=== PATIENT | female | born 1985 | race Hispanic/Latino ===

== ENCOUNTER → 2023-10-15 | Outpatient (CLI) | payer OTHER ==
[2023-10-15 11:19] LABS: BASOPHILS # (AUTO) 0.05 K/uL (0.00-0.20); BASOPHILS % (AUTO) 0.6 % (0.0-5.0); EOSINOPHILS # (AUTO) 0.19 K/uL (0.00-0.70); EOSINOPHILS % (AUTO) 2.4 % (0.0-8.0); HEMATOCRIT 36.4 % (36-48); IMMATURE GRANULOCYTE ABSOLUTE 0.01 K/uL (0-1); LYMPHOCYTES # (AUTO) 2.4 K/uL (1.0-4.8); LYMPHOCYTES % (AUTO) 30.4 % (21.0-51.0); MEAN CORPUSCULAR HEMOGLOBIN 28.5 pg (27.0-33.0); MEAN CORPUSCULAR HGB CONC 33.2 g/dL (32.0-36.0); MEAN CORPUSCULAR VOLUME 85.6 fL (79-99); MONOCYTES # (AUTO) 0.6 K/uL (0.1-1.0); MONOCYTES % (AUTO) 8.1 % (3.0-13.0); NEUTROPHILS # (AUTO) 4.6 K/uL (1.8-7.7); NEUTROPHILS % (AUTO) 58.4 % (40.0-77.0); PLATELET COUNT (AUTO) 260 K/uL (130-400); RED BLOOD CELL COUNT(AUTO) 4.25 MIL/uL (4.00-5.50); RED CELL DISTRIBUTION WIDTH 14.1 % (11.0-15.5); WHITE BLOOD COUNT (AUTO) 7.8 K/uL (4.8-10.8)
[2023-10-15 12:16] LABS: ALBUMIN 3.8 g/dL (3.5-5.0); BILIRUBIN,TOTAL 0.7 mg/dL (0.2-1.0); CREATININE 0.5 mg/dL (0.5-1.5); POTASSIUM 3.6 mmol/L (3.5-5.1); THYROID STIMULATING HORMONE 1.23 uIU/mL (0.36-3.74); TOTAL PROTEIN, SERUM 7.4 g/dL (6.0-8.3)
== END | disposition home or self-care (01) ==
LOC: LAB 09:11
PROVIDERS: ATTEND Internal Medicine
DX: Z00.00 Encounter for general adult medical examination without abnormal findings (principal); Z13.29 Encounter for screening for other suspected endocrine disorder; Z13.1 Encounter for screening for diabetes mellitus; Z13.220 Encounter for screening for lipoid disorders
CPT/HCPCS: 36415; 80053; 80061; 83036; 84443; 85025

== ENCOUNTER 2024-07-26 01:02 | Inpatient (IN) | payer OTHER ==
[~2024-07-26] VITALS: Ht 162.6 cm; Wt 76.6 kg
--- NOTE | 2024-07-26 01:11 | NUR ---
UA CUP PROVIDED
--- NOTE | 2024-07-26 01:33 | NUR ---
REPORT TO DR PATINO
--- NOTE | 2024-07-26 01:34 | NUR ---
patient to room 9 at this time
--- NOTE | 2024-07-26 01:35 | NUR ---
UA COLLECTED AND SENT FOR ANY FUTURE ORDERS
[2024-07-26 01:45] LABS: APPEARANCE,URINE CLEAR (CLEAR); BILIRUBIN,URINE NEGATIVE (NEGATIVE); GLUCOSE, URINE (UA) NEGATIVE (NEGATIVE); KETONES,URINE NEGATIVE (NEGATIVE); LEUKOCYTE ESTERASE ,URINE NEGATIVE Leu/uL (NEGATIVE); NITRATE,URINE NEGATIVE (NEGATIVE); OCCULT BLOOD,URINE MODERATE (NEGATIVE); PROTEIN,URINE NEGATIVE (NEGATIVE); UROBILINOGEN,URINE 0.2 mg/dL (0.2-1.0)
[2024-07-26 01:46] LABS: ADD UA MICROSCOPIC YES; COLOR,URINE Light-Yellow (YELLOW)
[2024-07-26 01:47] LABS: RBC,URINE TNTC /HPF (0-1); WBC,URINE 0-1 /HPF (0-1)
[2024-07-26 01:52] LABS: BASOPHILS # (AUTO) 0.05 K/uL (0.00-0.20); BASOPHILS % (AUTO) 0.6 % (0.0-5.0); EOSINOPHILS # (AUTO) 0.14 K/uL (0.00-0.70); EOSINOPHILS % (AUTO) 1.6 % (0.0-8.0); IMMATURE GRANULOCYTE ABSOLUTE 0.02 K/uL (0-1); LYMPHOCYTES # (AUTO) 2.7 K/uL (1.0-4.8); LYMPHOCYTES % (AUTO) 30.7 % (21.0-51.0); MEAN CORPUSCULAR HEMOGLOBIN 21.6 pg (27.0-33.0); MEAN CORPUSCULAR HGB CONC 30.7 g/dL (32.0-36.0); MEAN CORPUSCULAR VOLUME 70.5 fL (79-99); MONOCYTES # (AUTO) 0.8 K/uL (0.1-1.0); MONOCYTES % (AUTO) 8.7 % (3.0-13.0); NEUTROPHILS # (AUTO) 5.1 K/uL (1.8-7.7); NEUTROPHILS % (AUTO) 58.2 % (40.0-77.0); PLATELET COUNT (AUTO) 350 K/uL (130-400); RED BLOOD CELL COUNT(AUTO) 2.68 MIL/uL (4.00-5.50); RED CELL DISTRIBUTION WIDTH 16.5 % (11.0-15.5); WHITE BLOOD COUNT (AUTO) 8.8 K/uL (4.8-10.8)
[2024-07-26 02:00] LABS: CREATININE 0.6 mg/dL (0.5-1.0); POTASSIUM 3.3 mmol/L (3.5-5.1)
[2024-07-26 02:03] LABS: HEMATOCRIT 18.9 % (36-48)
[2024-07-26] MEDS ORDERED: acetaMINOPHEN 325 MG TAB PO PRN (02:30)
[2024-07-26] MEDS ORDERED: ondanSETRON 4MG INJ IVP PRN (02:30)
--- NOTE | 2024-07-26 02:31 | ERN ---
General Chief Complaint: Multiple Complaints Stated Complaint: PALPITATIONS, SOB, LOW H AND H Time Seen by MD: 01:06 Source: patient History of Present Illness Initial Comments PATIENT IS A 39-YEAR-OLD FEMALE COMING IN TO BE EVALUATED FOR GENERALIZED BODY WEAKNESS PALPITATIONS. PATIENT STATES HE HAS A HISTORY OF DYSFUNCTIONAL UTERINE BLEED AND WAS RECENTLY PLACED ON PROGESTERONE BY HER OBGYN. PATIENT STATES THAT SHE STILL FEELS WEAK IN HIS COMING IN TO BE EVALUATED. Allergies: Coded Allergies: No Known Allergies (Unverified Allergy, Unknown, 07/26/24) Past Medical History Past Medical History: No Pertinent History Past Surgical History: Other Surgical History Other: BREAST REDUCTION, ABD PLASTY Female( History) LMP: Jul 15, 2024 ROS Dictation CONSTITUTIONAL: NO CHILLS, NO FEVER, WEAKNESS, DIAPHORESIS, NO MALAISE. HEAD/FACE: NO SIGNS OF TRAUMA. EENT: NO EYE PAIN, NO BLURRED VISION, NO TEARING, NO DOUBLE VISION, NO EAR PAIN, NO EAR DISCHARGE, NO NOSE PAIN, NO NASAL CONGESTION, NO THROAT PAIN, NO THROAT SWELLING, NO MOUTH PAIN. RESPIRATORY: NO COUGH, NO ORTHOPNEA, NO SOB, NO STRIDOR, NO WHEEZING. CARDIOVASCULAR: NO CHEST PAIN, NO EDEMA, NO PALPITATIONS, NO SYNCOPE. GASTROINTESTINAL/ABDOMINAL: NO ABDOMINAL PAIN, NO CONSTIPATION, NO DIARRHEA, NO NAUSEA, NO VOMITING. GENITOURINARY: NO ABNORMAL DISCHARGE, NO DYSURIA, NO FREQUENT URINATION, NO HEMATURIA. NO COMPLAINTS OF PAIN IN THE GENITALS. MUSCULOSKELETAL: NO BACK PAIN, NO GOUT, NO JOINT PAIN, NO JOINT SWELLING, NO MUSCLE PAIN, NO MUSCLE STIFFNESS, NO NECK PAIN. INTEGUMENTARY: NO CHANGE IN COLOR, NO CHANGE IN HAIR/NAILS, NO DRYNESS, NO LESION, NO LUMPS, NO RASH. NEUROLOGICAL/PSYCH: NO ANXIETY, NOT DEPRESSED, NO EMOTIONAL PROBLEM, NO HE ADACHE, NO NUMBNESS, NO PRE-EXISTING DEFICIT, NO HISTORY OF SEIZURES, NO TREMORS, NO WEAKNESS. HEMATOLOGIC/LYMPHATIC: NOT ANEMIC, NO HISTORY OF BLOOD CLOTS, NO APPARENT BLEEDING, NO BRUISING, GLANDS NOT SWOLLEN. ALL SYSTEMS NEGATIVE, EXCEPT NOTED. Physical Exam Physical Exam Dictation VITAL SIGNS: REVIEWED. GENERAL APPEARANCE: ALERT, ORIENTED X3, NO ACUTE DISTRESS, . HEAD AND FACE: NON-TRAUMATIC. EYES: PERRL, PINK CONJUNCTIVAS, EYELID NO TRAUMA, ANTERIOR CHAMBER CLEAR. EARS: PINNAS INTACT AND NO SIGNS OF TRAUMA OR ERYTHEMA. EAR CANALS CLEAR AND NO DISCHARGE. TMS NO ERYTHEMA. NOSE: NO DISCHARGE, NO BLEEDING. OROPHARYNX: MOUTH NORMAL, TEETH NO CARIES, TONGUE PINK. PHARYNX CLEAR, NO ERYTHEMA. TONSILS NO EXUDATES, NO ABSCESSES NOTED. MUCOUS MEMBRANE MOIST. NECK: SUPPLE, NON-TENDER, NO THYROMEGALY, NO MASSES, NO JVD, NO BRUITS. BREAST: DEFERRED. CHEST: NO TENDERNESS, NO CREPITUS, NO PARADOXICAL MOVEMENT, NO RETRACTIONS. LUNGS: CLEAR, WELL-VENTILATED, SYMMETRIC, NO RALES, NO WHEEZING, NO RHONCHI, NO STRIDOR, GOOD BREATH SOUNDS BILATERALLY. HEART: REGULAR RATE, REGULAR RHYTHM, NO MURMUR, NO GALLOPS. VASCULAR: NO PERIPHERAL EDEMA. ABDOMEN: SOFT, POSITIVE BOWEL SOUNDS, NONDISTENDED, NO GUARDING, NONTENDER, NO REBOUND, NO MASSES NO HEPATOMEGALY, NO SPLENOMEGALY, NO ESPINOZA'S SIGN, NO HERNIAS. RECTAL: DEFERRED. GENITAL: DEFERRED. NEUROLOGICAL: NORMAL SPEECH, GROSS MOTOR FUNCTION INTACT, GROSS SENSORY FUNCTION INTACT. MUSCULOSKELETAL: NECK NONTENDER, FULL RANGE OF MOTION, BACK NONTENDER, FULL RANGE OF MOTION. EXTREMITIES: NONTENDER, FULL RANGE OF MOTION. SKIN: COLOR PINK, DRY, NO TURGOR, NO RASH, NO LACERATIONS, NO ABRASIONS, NO CONTUSIONS. LYMPHATICS: DEFERRED. Results Laboratory and Microbiology Lab and Micro Result Laboratory Tests Test 07/26/24 01:33 07/26/24 01:45 Urine Color Light-Yellow (YELLOW) Urine Appearance CLEAR (CLEAR) Urine pH 8.0 (5.0-8.0) Urine Specific [place] 1.011 (1.001-1.031) Urine Protein NEGATIVE mg/dL (NEGATIVE) Urine Glucose (UA) NEGATIVE mg/dL (NEGATIVE) Urine Ketones NEGATIVE mg/dL (NEGATIVE) Urine Occult Blood MODERATE (NEGATIVE) H Urine Nitrate NEGATIVE (NEGATIVE) Urine Bilirubin NEGATIVE mg/dL (NEGATIVE) Urine Urobilinogen 0.2 mg/dL (0.2-1.0) Urine Leukocyte Esterase NEGATIVE Radha/uL Urine RBC TNTC /HPF (0-1) H Urine WBC 0-1 /HPF (0-1) Urine Bacteria None /HPF (None Seen) White Blood Count 8.8 K/uL (4.8-10.8) Red Blood Count 2.68 MIL/uL (4.00-5.50) L Hemoglobin 5.8 g/dL (12.0-16.0) *L Hematocrit 18.9 % (36-48) *L Mean Corpuscular Volume 70.5 fL (79-99) L Mean Corpuscular Hemoglobin 21.6 pg (27.0-33.0) L Mean Corpuscular Hemoglobin Concent 30.7 g/dL (32.0-36.0) L Red Cell Distribution Width 16.5 % (11.0-15.5) H Platelet Count 350 K/uL (130-400) Mean Platelet Volume 11.0 fL (7.5-10.5) H Immature Granulocyte % (Auto) 0.2 % (0-1) Neutrophils (%) (Auto) 58.2 % (40.0-77.0) Lymphocytes (%) (Auto) 30.7 % (21.0-51.0) Monocytes (%) (Auto) 8.7 % (3.0-13.0) Eosinophils (%) (Auto) 1.6 % (0.0-8.0) Basophils (%) (Auto) 0.6 % (0.0-5.0) Neutrophils # (Auto) 5.1 K/uL (1.8-7.7) Lymphocytes # (Auto) 2.7 K/uL (1.0-4.8) Monocytes # (Auto) 0.8 K/uL (0.1-1.0) Eosinophils # (Auto) 0.14 K/uL (0.00-0.70) Basophils # (Auto) 0.05 K/uL (0.00-0.20) Absolute Immature Granulocyte (auto 0.02 K/uL (0-1) Nucleated Red Blood Cells 0.0 % (0.0-0.19) Activated Partial Thromboplast Time 21.4 SEC (26.3-35.5) L Sodium Level 135 mmol/L (136-145) L Potassium Level 3.3 mmol/L (3.5-5.1) L Chloride Level 99 mmol/L (101-111) L Carbon Dioxide Level 28 mmol/L (21-32) Blood Urea Nitrogen 9 mg/dL (7-18) Creatinine 0.6 mg/dL (0.5-1.0) Glomerular Filtration Rate Calc 116 mL/min (>90) Random Glucose 90 mg/dL (70-105) Total Calcium 8.7 mg/dL (8.5-10.1) Serum Test, Qualitative NEGATIVE (NEGATIVE) Labs Reviewed?: Yes EKG/XRAY/US/CT/MRI EKG Comment 07/26/2024 TIME 2:01 A.M. VENTRICULAR RATE 89 NORMAL SINUS RHYTHM [place] [address] WAVE ELEVATION OR DEPRESSION MDM MDM: DIFFERENTIAL DIAGNOSIS: ANEMIA, DYSFUNCTIONAL UTERINE BLEED, RATIONALE: TESTS CONSIDERED AND ORDERED SECONDARY TO SHARED DECISION MAKING INCLUDE: LABS, ECG AND RADIOLOGY PREVIOUS OUTSIDE RECORDS REVIEWED: OLD ER VISITS. RISK OF COMPLICATION AND/OR MORBIDITY OR MORTALITY OF PATIENT MANAGEMENT: NONE MEDICATIONS-PER MEDICATION RECONCILIATION NEED FOR HOSPITALIZATION: PATIENT DOES MEET CRITERIA FOR HOSPITALIZATION. NEED FOR EMERGENCY MAJOR/MINOR SURGERY: NO THERE ARE NO SOCIAL CONCERNS WITH THIS PATIENT. PRESCRIPTION DRUG MANAGEMENT PRESCRIPTIONS WILL INCLUDE SYMPTOMATIC CARE PATIENT'S PRIOR EXTERNAL MEDICAL RECORDS FROM OTHER ER VISITS WERE REVIEWED BY ME INDICATED. PRIOR TESTING AND RESULTS FROM PREVIOUS VISITS WERE REVIEWED. PRIOR TESTS WERE TAKEN INTO ACCOUNT WITH MEDICAL DECISION MAKING AND RESOURCE UTILIZATION, INDEPENDENT HISTORIAN/HISTORIANS WERE USED TO OBTAIN COMPLETE MEDICAL HISTORY. I INDEPENDENTLY INTERPRETED THE TEST THAT WERE PERFORMED, RESULTS WERE REVIEWED BY ME AND CONSIDERED FINDINGS ON RADIOLOGY IF ORDERED. MEDICAL MANAGEMENT AND EXAMINATION INTERPRETATION DISCUSSIONS WERE HAD BY ME WITH OTHER QUALIFIED HEALTHCARE PROFESSIONALS INDICATED FOR THE PATIENT'S CARE. PATIENT WILL BE ADMITTED UNDER THE CARE OF DR. TSE FOR ONGOING MANAGEMENT OF SEVERE ANEMIA WITH DYSFUNCTIONAL UTERINE BLEED. ED Course Orders Procedure Category Date Status Time Cbc With Differential LAB 07/26/24 In Process 01:37 12 Lead Ekg Tracing- EKG 07/26/24 Logged Technical 01:37 Urinalysis Profile LAB 07/26/24 Complete 01:37 Partial LAB 07/26/24 Complete Thromboplastin Time 01:37 Basic Metabolic Panel LAB 07/26/24 Complete 01:37 Type And Screen BBK 07/26/24 In Process 01:37 Testing, LAB 07/26/24 Complete Serum Hcg 01:38 Rbc-Active Bleeding BBK 07/26/24 In Process 02:21 Vital Signs Date Time Temp Pulse Resp B/P (MAP) Pulse Ox O2 Delivery O2 Flow Rate FiO2 07/26/24 02:14 94 18 96/57 100 Room Air* 0 21 07/26/24 01:04 98.8 106 20 130/68 100 Room Air Critical Care Note Comments CRITICAL CARE PROCEDURE NOTE AUTHORIZED AND PERFORMED BY: ME TOTAL CRITICAL CARE TIME: APPROXIMATELY 36 MINUTES DUE TO A HIGH PROBABILITY OF CLINICALLY SIGNIFICANT, LIFE THREATENING DETERIORATION, THE PATIENT REQUIRED MY HIGHEST LEVEL OF PREPAREDNESS TO INTERVENE EMERGENTLY AND I PERSONALLY SPENT THIS CRITICAL CARE TIME DIRECTLY AND PERSONALLY MANAGING THE PATIENT. THIS CRITICAL CARE TIME INCLUDED OBTAINING A HISTORY; EXAMINING THE PATIENT; PULSE OXIMETRY; ORDERING AND REVIEW OF STUDIES; ARRANGING URGENT TREATMENT WITH DEVELOPMENT OF A MANAGEMENT PLAN; EVALUATION OF PATIENT'S RESPONSE TO TREATMENT; FREQUENT REASSESSMENT; AND, DISCUSSIONS WITH OTHER PROVIDERS. THIS CRITICAL CARE TIME WAS PERFORMED TO ASSESS AND MANAGE THE HIGH PROBABILITY OF IMMINENT, LIFE-THREATENING DETERIORATION THAT COULD RESULT IN MULTI-ORGAN FAILURE. IT WAS EXCLUSIVE OF SEPARATELY BILLABLE PROCEDURES AND TREATING OTHER PATIENTS AND TEACHING TIME. PLEASE SEE MDM SECTION AND THE REST OF THE NOTE FOR FURTHER INFORMATION ON PATIENT ASSESSMENT AND TREATMENT. DX & DISP Disposition: Inpatient Decision to Admit Time: 02:31 Departure Impression: Primary Impression: Severe anemia Additional Impression: History of dysfunctional uterine bleeding Condition: Stable Referrals: TIM TSE MD (PCP) YASMANY PATINO MD Jul 26, 2024 02:31
[2024-07-26 03:42] VITALS: BP 90/50; PULSE 91; RESP 16; TEMP 99.1
--- NOTE | 2024-07-26 07:15 | NUR ---
2ND UNIT OF BLOOD INITIATED AT THIS TIME. TOLERATED WELL. VITALS STABLE.
[2024-07-26 08:00] VITALS: BP 93/53; PULSE 85; RESP 16; TEMP 98.4
[2024-07-26 08:15] VITALS: O2SAT 100
--- NOTE | 2024-07-26 09:57 | HP ---
HISTORY AND PHYSICAL Date of Visit: Jul 26, 2024 Time of Visit: 09:55 ADMISSION DATE: Jul 26, 2024 at 02:29 CC: WEAKNESS HPI: THIS IS A 39 YEAR-OLD WOMAN COMING IN TO BE EVALUATED FOR GENERALIZED BODY WEAKNESS AND PALPITATIONS. SHE HAS A HISTORY OF DYSFUNCTIONAL UTERINE BLEED THAT JUST STARTED IN THE PAST 2 MONTH WITH HEAVY MENSTRUAL BLEEDING. HER LAST CYCLE STARTED 07/22/2024 AND WAS ASSOCIATED WITH HEAVIER BLEEDING TO THE POINT THAT SHE HAD TO WEAR A DIAPER DUE TO THE LARGE BLOOD CLOTS SHE WAS HAVING. HER PROGRAMMING INSTRUCTOR DID A SONO AND FOUND HER TO HAVE A UTERINE FIBROID AND WAS RECENTLY PLACED ON PROGESTERONE. SHE NOW IS JUST HAVING SOME SPOTTING. HOWEVER, SHE BECAME VERY WEAK AND WAS ABLE TO WORK YESTERDAY BUT DESCRIBED INTERMITTENT SOB AND PALPITATIONS. AFTER WORK SHE CONTINUED TO WORSEN WITH PROGRESSIVE WEAKNESS SO SHE DECIDED TO PROCEED TO THE ER FOR EVALUATION. PAST MEDICAL HISTORY: UTERINE FIBROID SOCIAL HISTORY: AND LIVES LOCALLY FAMILY HISTORY: + RENAL CANCER ^ Allergies: Coded Allergies: No Known Allergies (Unverified Allergy, Unknown, 07/26/24) Scheduled Ferrous Sulfate (Ferrous Sulfate), 1 TAB PO BID Review of Systems Normal Eyes:, Normal Ear/Nose/Mouth/Throat, Normal Cardiovascular:, Normal Respiratory:, Normal Gastrointestinal:, Normal Integumentary:, Normal Musculoskeletal:, Normal Neurological:, Normal Psychological:, Normal Endocrine:, Normal Hematologic/Lymphatic:, Normal Allergic/Immunologic:; Abnormal Constitutional: (REFER TO HPI), Abnormal Genitourinary: (REFER TO HPI) Physical Exam Vital Signs Vital Signs Date Time Temp Pulse Resp B/P (MAP) Pulse Ox O2 Delivery O2 Flow Rate FiO2 07/26/24 01:04 98.8 106 20 130/68 100 Room Air 07/26/24 02:14 0 21 Appearance: Well dev, well nourished Eyes: PERRL, EOM Normal, Normal Conjuctivae/eyelid Ear/Nose/Mouth/Throat: Landmarks WNL, Hearing WNL, TMs WNL Neck: Symmetric, trach midline, Thyroid WNL Cardiovascular: PMI WNL, Regular Rate, Regular Rhythm Respiratory: No Retractions, No rubs/wheezing, Lungs clear G.I.: Normal bowel sounds, No pain w/ palpations, No hernias present, No hepatosplenomegaly, No rebound tenderness Musculoskeletal: Gait WNL Skin: No rash/ulcers Neurology: Nerves I-XII intact, Sensation WNL Psychology: Insight WNL, Orientation WNL, Memory WNL, Affect WNL Diagnostics Laboratory Tests Test 07/26/24 01:33 07/26/24 01:45 Range/Units Urine Color Light-Yellow YELLOW Urine Appearance CLEAR CLEAR Urine pH 8.0 5.0-8.0 Urine Specific [place] 1.011 1.001-1.031 Urine Protein NEGATIVE NEGATIVE mg/dL Urine Glucose (UA) NEGATIVE NEGATIVE mg/dL Urine Ketones NEGATIVE NEGATIVE mg/dL Urine Occult Blood MODERATE NEGATIVE Urine Nitrate NEGATIVE NEGATIVE Urine Bilirubin NEGATIVE NEGATIVE mg/dL Urine Urobilinogen 0.2 0.2-1.0 mg/dL Urine Leukocyte Esterase NEGATIVE NEGATIVE Radha/uL Urine RBC TNTC 0-1 /HPF Urine WBC 0-1 0-1 /HPF Urine Bacteria None None Seen /HPF White Blood Count 8.8 4.8-10.8 K/uL Red Blood Count 2.68 4.00-5.50 MIL/uL Hemoglobin 5.8 12.0-16.0 g/dL Hematocrit 18.9 36-48 % Mean Corpuscular Volume 70.5 79-99 fL Mean Corpuscular Hemoglobin 21.6 27.0-33.0 pg Mean Corpuscular Hemoglobin Concent 30.7 32.0-36.0 g/dL Red Cell Distribution Width 16.5 11.0-15.5 % Platelet Count 350 130-400 K/uL Mean Platelet Volume 11.0 7.5-10.5 fL Immature Granulocyte % (Auto) 0.2 0-1 % Neutrophils (%) (Auto) 58.2 40.0-77.0 % Lymphocytes (%) (Auto) 30.7 21.0-51.0 % Monocytes (%) (Auto) 8.7 3.0-13.0 % Eosinophils (%) (Auto) 1.6 0.0-8.0 % Basophils (%) (Auto) 0.6 0.0-5.0 % Neutrophils # (Auto) 5.1 1.8-7.7 K/uL Lymphocytes # (Auto) 2.7 1.0-4.8 K/uL Monocytes # (Auto) 0.8 0.1-1.0 K/uL Eosinophils # (Auto) 0.14 0.00-0.70 K/uL Basophils # (Auto) 0.05 0.00-0.20 K/uL Absolute Immature Granulocyte (auto 0.02 0-1 K/uL Nucleated Red Blood Cells 0.0 0.0-0.19 % Red Blood Cell Morphology See comments Activated Partial Thromboplast Time 21.4 26.3-35.5 SEC Sodium Level 135 136-145 mmol/L Potassium Level 3.3 3.5-5.1 mmol/L Chloride Level 99 101-111 mmol/L Carbon Dioxide Level 28 21-32 mmol/L Blood Urea Nitrogen 9 7-18 mg/dL Creatinine 0.6 0.5-1.0 mg/dL Glomerular Filtration Rate Calc 116 >90 mL/min Random Glucose 90 70-105 mg/dL Total Calcium 8.7 8.5-10.1 mg/dL Serum Test, Qualitative NEGATIVE NEGATIVE Assessment/Plan Assessment/Plan ASSESSMENT: THIS IS A 39 YR OLD WOMAN WITH HISTORY OF UTERINE FIBROID SHE PRESENTED WITH SYMPTOMATIC ANEMIA FROM ABNORMAL UTERINE BLEEDING HYPOKALEMIA PLAN: TYPE AND CROSS AND TRANSFUSE NEEDED TO KEEP HB > 7.0 MONITOR SERIAL H/H HYDRATE NEEDED FOLLOW UP WITH PROGRAMMING INSTRUCTOR TO UTERINE FIBROID ABLATION VS SURGICAL REMOVAL SUPPLEMENT POTASSIUM CONTINUE SUPPORTIVE MEASURES TIM TSE MD Jul 26, 2024 09:57
[2024-07-26] MEDS ORDERED: MAG/ALUM/SIMETH 30 ML UDCUP PO PRN (10:00)
[2024-07-26] MEDS ORDERED: LACTULOSE 20 GM/30 ML UDCUP PO PRN (10:00)
[2024-07-26] MEDS ORDERED: PoTASSium chl 10% ELIXIR 20MEQ 20 MEQ/15 ML UDCUP PO PRN (10:30)
[2024-07-26] MEDS ORDERED: PoTASSium chloRIDE 20MEQ/100ML 100 ML IV PRN (10:30)
[2024-07-26] MEDS: 0.9%NACL 1000ML 1,000 ML IV SCH (11:25)
--- NOTE | 2024-07-26 11:25 | NUR ---
2ND UNIT OF BLOOD HAS BEEN FULLY ADMINISTERED. VITAL SIGNS STABLE. PATIENT TOLERATED WELL. WILL RECHECK H&H AT 1230.
[2024-07-26 12:00] VITALS: BP 99/57; PULSE 86; RESP 16; TEMP 98.1
[2024-07-26 12:30] LABS: HEMATOCRIT 22.7 % (36-48)
[2024-07-26] MEDS: PoTASSium chloRIDE 20MEQ ER 20 MEQ ERTAB PO PRN (13:13)
[2024-07-26] MEDS ORDERED: FERS325 PO (14:19)
[2024-07-26 15:35] LABS: HEMATOCRIT 23.5 % (36-48); MEAN CORPUSCULAR HEMOGLOBIN 23.4 pg (27.0-33.0); MEAN CORPUSCULAR HGB CONC 31.1 g/dL (32.0-36.0); MEAN CORPUSCULAR VOLUME 75.3 fL (79-99); RED BLOOD CELL COUNT(AUTO) 3.12 MIL/uL (4.00-5.50); RED CELL DISTRIBUTION WIDTH 16.8 % (11.0-15.5); WHITE BLOOD COUNT (AUTO) 5.5 K/uL (4.8-10.8)
--- NOTE | 2024-07-26 15:54 | EKG ---
[facility] Test Date: 2024-07-26 Test Time: 02:01:13 Pat Name: TUSHAR JUNIOR Department: [facility] Room: 417 1 Gender: F [employer] Sales: [phone] : 1985 Requested By: YASMANY PATINO Order Number: [id number] Reading MD: Randee Null Measurements Intervals [place] Rate: 89 P: 30 TX: 141 QRS: 21 QRSD: 90 T: 13 QT: 374 QTc: 455 Interpretive Statements Sinus rhythm No previous ECG available for comparison Electronically Signed On 07-27-2024 01:24:16 PRIVACY SPECIALIST by Randee Null Please click the below link to view image of tracing.
[2024-07-26 16:00] VITALS: BP 91/59; PULSE 82; RESP 16; TEMP 98.1
--- NOTE | 2024-07-26 17:10 | NUR ---
DISCHARGE PATIENT IS TO BE DISCHARGED HOME. PIV REMOVED. PRESSURE GAUZE AND TAPE APPLIED TO SITE. PATIENT VERBALIZES UNDERSTANDING OF DISCHARGE PAPERWORK. PATIENT IS TO FOLLOW UP WITH DR TSE IN 1-2 DAYS. PATIENT STARTED ON FERROUS SULFATE AND IT HAS BEEN SENT TO PREFERRED PHARMACY. PENDING RIDE.
--- NOTE | 2024-07-26 17:23 | NUR ---
DISCHARGE PATIENT'S RIDE IS HERE. PATIENT STATES SHE FEELS COMFORTABLE WALKING DOWN TO PRIVATE AUTOMOBILE. PATIENT ACCOMPANIED DOWNSTAIRS BY MANAGER SERVICING.
--- NOTE | 2024-07-26 20:49 | DS ---
DISCHARGE SUMMARY Date of Visit: Jul 26, 2024 Time of Visit: 20:18 ADMISSION DATE: Jul 26, 2024 at 02:29 DISCHARGE DATE: Jul 26, 2024 ATTENDED PHYSICIAN: Tim Mcgarry MD DISCHARGE DIAGNOSIS: SYMPTOMATIC ANEMIA ( HB 5.8 ) S/P 2 UNIT PRBC TRANSFUSION HB (7.3) FROM ABNORMAL UTERINE BLEEDING HYPOKALEMIA UTERINE FIBROID COUNTER SALES PERSON(S): NONE PROCEDURES: NONE RADIOLOGY: NONE HOSPITAL COURSE: THIS IS A 39 YR OLD WOMAN WITH A HISTORY OF A UTERINE FIBROID WHO PRESENTED WITH SYMPTOMATIC ANEMIA FROM ABNORMAL UTERINE BLEEDING. SHE PRESENTED WITH A HEMOGLOBIN OF 5.8 AND WAS TRANSFUSED 2 UNITS OF PRBC. SHE RESPONDED AND HER HEMOGLOBIN INCREASED TO 7.3 AND WAS SYMPTOMATICALLY BETTER. HER HYPOKALEMIA WAS SUPPLEMENTED. HER ABNORMAL UTERINE BLEEDING HAD ALREADY SUBSIDED WITH PROGESTERONE. ONCE STABLE SHE WAS THEN DISCHARGED IN STABLE CONDITION. DIET: HEART HEALTHY ACTIVITY: PROGRESSIVE AMBULATION CONDITION: STABLE EQUIPMENT: NONE FOLLOW UP APPOINTMENT(S): DR MCGARRY 2-5 DAYS, SET UP OUTPATIENT FOLLOW UP WITH PREFORM MACHINE OPERATOR UPON RELEASE DISPOSITION: HOME CODE STATUS: FULL MEDICATION RECONCILIATION : ADDED IRON SULFATE 325 MG PO BID ^ Home Meds Active Scripts Ferrous Sulfate (Ferrous Sulfate) 325 Mg (65 Mg Iron) Ectab, 1 TAB PO BID for 90 Days, #180 TAB 0 Refills Prov:TIM MCGARRY MD 07/26/24 TIM MCGARRY MD Jul 26, 2024 20:49
[2024-07-27] MEDS ORDERED: FAMOTIDINE 20MG TAB PO SCH (09:00)
== END 2024-07-26 17:30 | disposition home or self-care (01) | DRG 812 ==
LOC: EDH 01:02 → EDHIP 02:29 → 4CH 03:39
PROVIDERS: ADMIT Internal Medicine; ATTEND Internal Medicine
PROC: 30233N1 Transfusion of Nonautologous Red Blood Cells into Peripheral Vein, Percutaneous Approach (ICD-10-PCS; principal; 2024-07-26)
DX: D64.9 Anemia, unspecified (principal); N93.8 Other specified abnormal uterine and vaginal bleeding; D25.9 Leiomyoma of uterus, unspecified; E87.6 Hypokalemia; Z80.51 Family history of malignant neoplasm of kidney; Z79.899 Other long term (current) drug therapy
CPT/HCPCS: 36415; 80048; 81001; 84132; 84703; 85014; 85018; 85025; 85027; 85730; 86850; 86900; 86901; 86923; 93005; 99291; G0378; P9016

== ENCOUNTER → 2024-07-28 | Outpatient (CLI) | payer OTHER ==
[~2024-07-28] MED LIST: FERS325 PO
[2024-07-28 14:08] LABS: BASOPHILS # (AUTO) 0.07 K/uL (0.00-0.20); EOSINOPHILS # (AUTO) 0.19 K/uL (0.00-0.70); EOSINOPHILS % (AUTO) 2.7 % (0.0-8.0); HEMATOCRIT 26.7 % (36-48); IMMATURE GRANULOCYTE ABSOLUTE 0.02 K/uL (0-1); LYMPHOCYTES # (AUTO) 1.9 K/uL (1.0-4.8); LYMPHOCYTES % (AUTO) 27.1 % (21.0-51.0); MEAN CORPUSCULAR HEMOGLOBIN 23.4 pg (27.0-33.0); MEAN CORPUSCULAR VOLUME 78.1 fL (79-99); MONOCYTES # (AUTO) 0.6 K/uL (0.1-1.0); MONOCYTES % (AUTO) 8.7 % (3.0-13.0); NEUTROPHILS # (AUTO) 4.2 K/uL (1.8-7.7); NEUTROPHILS % (AUTO) 60.2 % (40.0-77.0); PLATELET COUNT (AUTO) 340 K/uL (130-400); RED BLOOD CELL COUNT(AUTO) 3.42 MIL/uL (4.00-5.50); RED CELL DISTRIBUTION WIDTH 18.1 % (11.0-15.5)
== END | disposition home or self-care (01) ==
LOC: LAB 13:26
PROVIDERS: ATTEND Internal Medicine
DX: D64.89 Other specified anemias (principal)
CPT/HCPCS: 36415; 85025

== ENCOUNTER → 2024-07-31 | Outpatient (CLI) | payer OTHER | END | disposition home or self-care (01) | LOC: LAB 12:17 | PROVIDERS: ATTEND Obstetrics & Gynecology | DX: N93.9 Abnormal uterine and vaginal bleeding, unspecified (principal) | CPT/HCPCS: 88305 ==

== ENCOUNTER 2024-08-06 17:45 | Observation (INO) | payer OTHER ==
[~2024-08-06] VITALS: Ht 162.6 cm; Wt 73.9 kg
[2024-08-06 18:06] VITALS: BP 113/70; PULSE 100; RESP 16; TEMP 98.6
[2024-08-06 19:03] LABS: APPEARANCE,URINE CLEAR (CLEAR); BILIRUBIN,URINE NEGATIVE (NEGATIVE); COLOR,URINE LIGHT-YELLOW (YELLOW); GLUCOSE, URINE (UA) NEGATIVE (NEGATIVE); KETONES,URINE NEGATIVE (NEGATIVE); LEUKOCYTE ESTERASE ,URINE NEGATIVE Leu/uL (NEGATIVE); NITRATE,URINE NEGATIVE (NEGATIVE); OCCULT BLOOD,URINE NEGATIVE (NEGATIVE); PH,URINE 6.5 (5.0-8.0); PROTEIN,URINE NEGATIVE (NEGATIVE)
[2024-08-06 19:04] LABS: ADD UA MICROSCOPIC NO
[2024-08-06 19:05] LABS: HCG,QUALITATIVE URINE NEGATIVE (NEGATIVE)
[2024-08-06 19:18] LABS: MEAN CORPUSCULAR HEMOGLOBIN 22.6 pg (27.0-33.0); MEAN CORPUSCULAR HGB CONC 29.3 g/dL (32.0-36.0); MEAN CORPUSCULAR VOLUME 77.4 fL (79-99); RED BLOOD CELL COUNT(AUTO) 2.12 MIL/uL (4.00-5.50); RED CELL DISTRIBUTION WIDTH 19.6 % (11.0-15.5); WHITE BLOOD COUNT (AUTO) 6.3 K/uL (4.8-10.8)
[2024-08-06 19:22] LABS: HEMATOCRIT 16.4 % (36-48)
[2024-08-06 19:37] VITALS: BP 102/67; PULSE 96; RESP 24; TEMP 98.2
--- NOTE | 2024-08-06 20:10 | NUR ---
PRBC UNIT #1 STARTED.
--- NOTE | 2024-08-06 22:30 | NUR ---
PRBC UNIT #1 COMPLETED. VITAL SIGNS STABLE AND NO BLOOD TRANSFUSION REACTION NOTED.
--- NOTE | 2024-08-06 23:15 | NUR ---
PRBC UNIT #2 STARTED.
[2024-08-06 23:20] VITALS: BP 91/59; PULSE 87; RESP 20; TEMP 98.4
[2024-08-07] VITALS (31 sets, daily range): BP systolic 85–109; BP diastolic 45–64; PULSE 71–105; RESP 12–20; TEMP 97–98.9
--- NOTE | 2024-08-07 03:00 | NUR ---
PRBC UNIT #2 COMPLETED. VITAL SIGNS STABLE AND NO BLOOD TRANSFUSION REACTION NOTED. Addendum: 08/07/24 at 0318 by DONNA CLEMENTE RN RN Amended: Links added.
[2024-08-07 07:02] LABS: MEAN CORPUSCULAR HEMOGLOBIN 24.9 pg (27.0-33.0); MEAN CORPUSCULAR HGB CONC 31.3 g/dL (32.0-36.0); MEAN CORPUSCULAR VOLUME 79.7 fL (79-99); NUCLEATED RED BLOOD CELLS 0.3 % (0.0-0.19); RED BLOOD CELL COUNT(AUTO) 3.01 MIL/uL (4.00-5.50); RED CELL DISTRIBUTION WIDTH 18.2 % (11.0-15.5); WHITE BLOOD COUNT (AUTO) 6.7 K/uL (4.8-10.8)
[2024-08-07] MEDS: LACTATED RINGERS 1000ML 1,000 ML IV SCH (08:14)
--- NOTE | 2024-08-07 08:50 | NUR ---
PATIENT TAKEN TO O.R. FOR SCHEDULED SURGERY, PATIENT TRANSPORTED VIA HOSPITAL BED BY O.R. TECH.
[2024-08-07] MEDS ORDERED: ondanSETRON 4MG INJ ONE (08:53)
[2024-08-07] MEDS ORDERED: GLYCOPYRROLATE 0.2 MG/ML 5 ML VIAL ONE (08:53)
[2024-08-07] MEDS ORDERED: MIDAZOLAM HCL 1 MG/ML 2ML VIAL ONE (08:53)
[2024-08-07] MEDS ORDERED: NEOSTIGMINE METHYLSULFATE 1MG/ML IV ONE (08:53)
[2024-08-07] MEDS ORDERED: proPOFol 10 MG/ML 20ML VIAL IV ONE (08:53)
[2024-08-07] MEDS ORDERED: rocuRONium bROMide 10MG/1ML 5ML VL ONE ×2 (08:53→09:58)
[2024-08-07] MEDS ORDERED: FENTanyl CITRate PF 50 MCG/1 ML 2ML VIAL ONE (08:54)
[2024-08-07 08:56] LABS: CREATININE 0.6 mg/dL (0.5-1.0); POTASSIUM 3.6 mmol/L (3.5-5.1)
[2024-08-07] MEDS: acetaMINOPHEN 100 ML ONE (09:09)
[2024-08-07] MEDS: ceFAZolin SODIUM 2 GM VIAL ONE (09:30)
[2024-08-07] MEDS ORDERED: dexaMETHasone SOD PHOSPHATE 4 MG/ML 1ML VIAL ONE (09:39)
[2024-08-07] MEDS: TRANEXAMIC ACID 1000MG/10ML ONE (10:45)
[2024-08-07] MEDS: MEPERIDINE-PF 25 MG/ML SYG ONE ×2 (11:21→11:33)
--- NOTE | 2024-08-07 11:30 | OP ---
DATE OF PROCEDURE: 08/07/2024 PREOPERATIVE DIAGNOSES: * Menorrhagia. * Acute anemia. * Submucosal fibroid. POSTOPERATIVE DIAGNOSES: * Menorrhagia. * Acute anemia. * Submucosal fibroid. PROCEDURES: Hysteroscopy, D and C, MyoSure endometrial biopsy and attempted NovaSure endometrial ablation. SURGEON: Monica Bernabe MD ANESTHESIA: General endotracheal. COMPLICATIONS: None. ESTIMATED BLOOD LOSS: Approximately 100 mL. SPECIMENS: Endometrial curettings. FINDINGS: Cervix with descensus to introitus, cystocele noted with descent to the introitus. Cavity was measured at 11 cm at the beginning of procedure. Cavity length was 5 cm, for NovaSure cavity width was 4.6 cm, power of procedure was 127 and the cycle was not completed. On hysteroscopy, multiple polyps and abundant tissue noted throughout cavity. Large anterior left lateral fibroid noted running the entire length of the uterus. DESCRIPTION OF PROCEDURE: The patient was taken to the operating room where general endotracheal anesthesia was induced without complication. She was prepped and draped in the usual sterile fashion in dorsal lithotomy position with the amor cane stirrups. Timeout was done. A weighted speculum was placed in the vagina. The anterior lip of the cervix grasped with an Allis clamp. The hysteroscope was advanced into the uterus. Multiple polyps were noted within the endometrial cavity. The fundus was observed. The MyoSure was used to clear polyps for better visualization and a large submucosal fibroid was noted on the left anterior portion of the uterus. Running the length of the uterus, a large base was noted. MyoSure resection/biopsy was continued for clearing of the cavity. Copious amounts of tissue and polyps were obtained. The cervical length was then measured visually. The NovaSure apparatus was seated in the uterus with the findings as noted above. Several attempts were made to clear the uterine cavity check with NovaSure. However due to a largely dilated cervix, decision was made to proceed with a cerclage. A cerclage was then placed in pursestring fashion starting at 12 o'clock. The NovaSure was again seated in the uterus with the measurements as noted above. The cerclage was tied and tightened. The cervix was secured with Allis clamps. Xeroform was then placed around the collar of the NovaSure and attempts made to clear the cavity check; however, this was unsuccessful after multiple attempts. All instruments were removed. There was scant bleeding noted from the cervix. 2 small serosal tears on the cervix were closed with [id number] stitches of 2-0 Vicryl. Hemostasis was assured. One dose of tranexamic acid 1 gram was given IV intraoperatively. The patient was then taken out of lithotomy position, taken to the PACU awake and in stable condition. All sponge, lap, needle and instrument counts were correct x 2. The patient's was called and notified of her operative course and stability. TID: [id number] RECEIPT: [id number]
[2024-08-07] MEDS: ceFAZolin SODIUM 1 GM VIAL IVPB PRN (11:55)
[2024-08-07] MEDS: ALBUMIN (HUMAN) 5% 250 ML IV ONE (12:28)
--- NOTE | 2024-08-07 12:45 | NUR ---
REPORT RECEIVED FROM CHARGE NURSE Shay BOTELLO RN IN L&D UNIT WHOM RECEIVED REPORT FROM PACU.
--- NOTE | 2024-08-07 12:50 | NUR ---
PATIENT ARRIVED FROM PACU VIA BED BY RAZA MAZARIEGOS RN. SEE CHARTING OF ASSESSMENT.
[2024-08-07 16:16] LABS: BASOPHILS # (AUTO) 0.02 K/uL (0.00-0.20); BASOPHILS % (AUTO) 0.2 % (0.0-5.0); HEMATOCRIT 22.7 % (36-48); IMMATURE GRANULOCYTE ABSOLUTE 0.07 K/uL (0-1); LYMPHOCYTES # (AUTO) 0.6 K/uL (1.0-4.8); LYMPHOCYTES % (AUTO) 5.3 % (21.0-51.0); MEAN CORPUSCULAR HEMOGLOBIN 26.3 pg (27.0-33.0); MEAN CORPUSCULAR HGB CONC 32.6 g/dL (32.0-36.0); MEAN CORPUSCULAR VOLUME 80.8 fL (79-99); MONOCYTES # (AUTO) 0.1 K/uL (0.1-1.0); NEUTROPHILS # (AUTO) 10.3 K/uL (1.8-7.7); NEUTROPHILS % (AUTO) 92.9 % (40.0-77.0); NUCLEATED RED BLOOD CELLS 0.2 % (0.0-0.19); PLATELET COUNT (AUTO) 209 K/uL (130-400); RED BLOOD CELL COUNT(AUTO) 2.81 MIL/uL (4.00-5.50); RED CELL DISTRIBUTION WIDTH 16.9 % (11.0-15.5); WHITE BLOOD COUNT (AUTO) 11.1 K/uL (4.8-10.8)
--- NOTE | 2024-08-07 16:32 | NUR ---
DCP-Home Pt awake, alert, oriented lives with Spouse Stephane Hudson [phone] and children. PCP is Lenora Mcgarry. Independent on ADLs. Pt currently employed at [employer]. Anticipates discharge plan is for home. Addendum: 08/07/24 at 1636 by JEANNA CARDOSO RN CM Amended: Links added.
--- NOTE | 2024-08-07 16:50 | NUR ---
ASSISTED PATIENT TO BATHROOM, VOIDED WELL, SMALL TO SCANT VAGINAL BLEEDING NOTED TO PAD, SMALL LIGHT RED BLOOD IN TOILET AFTER VOIDING NOTED. PATIENT PERFORMED OWN FRANCOISE CARE. ASSISTED PATIENT BACK TO BED.
--- NOTE | 2024-08-07 18:30 | NUR ---
PREPARED PATIENT FOR BLOOD TRANSFUSION.
--- NOTE | 2024-08-07 18:49 | NUR ---
HAND STONECUTTER BLOOD READY.
--- NOTE | 2024-08-07 19:15 | NUR ---
VERIFIED BLOOD TRANSFUSION WITH Shay SANABRIA RN. SEE TRANSFUSION REPORT IN CHART.
--- NOTE | 2024-08-07 19:20 | NUR ---
BLOOD TRANSFUSION ORDERED STARTED.
--- NOTE | 2024-08-07 19:25 | NUR ---
PATIENT TOLERATING BLOOD TRANSFUSION WELL. SEE TRANSFUSION REPORT IN CHART.
--- NOTE | 2024-08-07 19:35 | NUR ---
PATIENT TOLERATING BLOOD TRANSFUSION WELL, NO COMPLAINTS, ASYMPTOMATIC. SHIFT CHANGE REPORT GIVEN TO Shay SANABRIA RN FOR CONTINUITY OF PATIENT CARE.
[2024-08-07] MEDS ORDERED: acetaMINOPHEN 500 MG TABLET PO PRN (20:30)
[2024-08-07] MEDS: doCUSate SODIUM 100 MG CAP PO ONE (21:02)
[2024-08-07] MEDS: ibuPROFEN 800 MG TAB PO PRN (21:03)
--- NOTE | 2024-08-08 02:45 | NUR ---
Second unit of blood tolerated well vss, transfusion service report taken to lab obtained lab signature , report filed in patient's chart.
[2024-08-08 03:45] VITALS: BP 99/63; PULSE 85; RESP 20; TEMP 98.5
[2024-08-08 07:30] VITALS: BP 107/59; PULSE 74; RESP 20; TEMP 98.2
[2024-08-08 07:55] LABS: HEMATOCRIT 26.6 % (36-48); MEAN CORPUSCULAR HEMOGLOBIN 25.8 pg (27.0-33.0); MEAN CORPUSCULAR HGB CONC 32.3 g/dL (32.0-36.0); MEAN CORPUSCULAR VOLUME 79.9 fL (79-99); NUCLEATED RED BLOOD CELLS 0.2 % (0.0-0.19); RED BLOOD CELL COUNT(AUTO) 3.33 MIL/uL (4.00-5.50); RED CELL DISTRIBUTION WIDTH 18.3 % (11.0-15.5)
--- NOTE | 2024-08-08 09:10 | NUR ---
discharge instructions given, pls refer to [facility]. informed to call the MD office to make a follow up appointment, informed to call the doctor for further concerns. pt voiced understanding to all things discussed. Addendum: 08/08/24 at 1004 by JANIS WALSH RN Amended: Links added.
== END 2024-08-08 09:20 | disposition home or self-care (01) ==
LOC: WSH 17:45 → INTOOBSV 17:45
PROVIDERS: ADMIT Obstetrics & Gynecology; ATTEND Obstetrics & Gynecology
DX: D25.0 Submucous leiomyoma of uterus (principal); D64.9 Anemia, unspecified; N92.0 Excessive and frequent menstruation with regular cycle; Z98.890 Other specified postprocedural states; Z79.899 Other long term (current) drug therapy
CPT/HCPCS: 36430; 85027 ×3; 86850; 86900; 86901; 86923 ×3; 81003; 81025; 36415 ×3; 58558; 80048; 85025; 88305; G0378 ×32; P9016 ×5; J7120; A4351; A4606; A4344; A4355; P9045; J3010; J3490 ×4; J2250; J2704; J2405; J2710; J1100; J2175 ×2; J0690; A4223; A4222; A4216; J7030; 96365

== ENCOUNTER → 2024-08-06 | Outpatient (CLI) | payer OTHER ==
[2024-08-06 14:52] LABS: BASOPHILS # (AUTO) 0.03 K/uL (0.00-0.20); BASOPHILS % (AUTO) 0.6 % (0.0-5.0); EOSINOPHILS # (AUTO) 0.11 K/uL (0.00-0.70); EOSINOPHILS % (AUTO) 2.2 % (0.0-8.0); IMMATURE GRANULOCYTE ABSOLUTE 0.01 K/uL (0-1); LYMPHOCYTES # (AUTO) 1.7 K/uL (1.0-4.8); LYMPHOCYTES % (AUTO) 34.4 % (21.0-51.0); MEAN CORPUSCULAR HEMOGLOBIN 22.8 pg (27.0-33.0); MEAN CORPUSCULAR HGB CONC 28.8 g/dL (32.0-36.0); MONOCYTES # (AUTO) 0.5 K/uL (0.1-1.0); MONOCYTES % (AUTO) 9.3 % (3.0-13.0); NEUTROPHILS # (AUTO) 2.7 K/uL (1.8-7.7); NEUTROPHILS % (AUTO) 53.3 % (40.0-77.0); PLATELET COUNT (AUTO) 273 K/uL (130-400); RED BLOOD CELL COUNT(AUTO) 2.24 MIL/uL (4.00-5.50); RED CELL DISTRIBUTION WIDTH 19.8 % (11.0-15.5); WHITE BLOOD COUNT (AUTO) 5.1 K/uL (4.8-10.8)
[2024-08-06 15:12] LABS: HEMATOCRIT 17.7 % (36-48)
== END | disposition home or self-care (01) ==
LOC: LAB 14:16
PROVIDERS: ATTEND Obstetrics & Gynecology
DX: N93.9 Abnormal uterine and vaginal bleeding, unspecified (principal)
CPT/HCPCS: 36415; 85025

== ENCOUNTER 2024-09-03 13:00 | Inpatient (IN) | payer OTHER ==
[~2024-09-03] VITALS: Ht 162.6 cm; Wt 76.7 kg
[2024-09-03 11:47] LABS: BASOPHILS # (AUTO) 0.07 K/uL (0.00-0.20); BASOPHILS % (AUTO) 1.2 % (0.0-5.0); EOSINOPHILS # (AUTO) 0.16 K/uL (0.00-0.70); EOSINOPHILS % (AUTO) 2.8 % (0.0-8.0); HEMATOCRIT 32.6 % (36-48); IMMATURE GRANULOCYTE ABSOLUTE 0.02 K/uL (0-1); LYMPHOCYTES # (AUTO) 1.7 K/uL (1.0-4.8); LYMPHOCYTES % (AUTO) 29.2 % (21.0-51.0); MEAN CORPUSCULAR HGB CONC 30.1 g/dL (32.0-36.0); MEAN CORPUSCULAR VOLUME 79.7 fL (79-99); MONOCYTES # (AUTO) 0.5 K/uL (0.1-1.0); MONOCYTES % (AUTO) 9.2 % (3.0-13.0); NEUTROPHILS # (AUTO) 3.3 K/uL (1.8-7.7); NEUTROPHILS % (AUTO) 57.3 % (40.0-77.0); PLATELET COUNT (AUTO) 304 K/uL (130-400); RED BLOOD CELL COUNT(AUTO) 4.09 MIL/uL (4.00-5.50); RED CELL DISTRIBUTION WIDTH 17.4 % (11.0-15.5); WHITE BLOOD COUNT (AUTO) 5.8 K/uL (4.8-10.8)
[2024-09-03 12:07] VITALS: BP 105/63; PULSE 86; RESP 18; TEMP 97.7
[~2024-09-03 13:00] MED LIST changes: -FERS325 PO; +[UNRECOGNIZED DRUG - OTHER] PO
[2024-09-04] VITALS (25 sets, daily range): BP systolic 82–106; BP diastolic 45–69; PULSE 64–100; RESP 13–20; TEMP 97.3–98.6; O2SAT 99
[2024-09-04] MEDS ORDERED: proPOFol 10 MG/ML 20ML VIAL IV ONE (06:31)
[2024-09-04] MEDS ORDERED: rocuRONium bROMide 10MG/1ML 5ML VL ONE (06:31)
[2024-09-04] MEDS ORDERED: FENTanyl CITRate PF 50 MCG/1 ML 2ML VIAL ONE (06:31)
[2024-09-04] MEDS ORDERED: MIDAZOLAM HCL 1 MG/ML 2ML VIAL ONE (06:31)
[2024-09-04] MEDS ORDERED: morPHINE PF 100MG/10ML AMP IV ONE (06:35)
[2024-09-04 06:49] LABS: CREATININE 0.6 mg/dL (0.5-1.0); POTASSIUM 4.1 mmol/L (3.5-5.1)
[2024-09-04] MEDS: ceFAZolin SODIUM 2 GM VIAL ONE (06:53)
[2024-09-04] MEDS: LACTATED RINGERS 1000ML 1,000 ML IV ONE (06:53)
[2024-09-04] MEDS ORDERED: ePHEDrine SULFate 50 MG/ML AMPULE ONE (06:58)
[2024-09-04] MEDS ORDERED: phenylEPHRINE HCL 10 MG/ML 1ML VIAL IV ONE (07:56)
[2024-09-04] MEDS ORDERED: NEOSTIGMINE METHYLSULFATE 1MG/ML IV ONE (08:21)
[2024-09-04] MEDS ORDERED: GLYCOPYRROLATE 0.2 MG/ML 5 ML VIAL ONE (08:21)
[2024-09-04] MEDS ORDERED: DROS4TAB PO (08:59)
[2024-09-04] MEDS ORDERED: PROMETHAZINE HCL 25 MG/ML 1ML AMPULE IM PRN (09:00)
[2024-09-04] MEDS ORDERED: MEPERIDINE-PF 50 MG/ML SYG IM PRN (09:00)
[2024-09-04] MEDS ORDERED: BisaCODYL 10 MG SUPP.RECT RC PRN (09:00)
--- NOTE | 2024-09-04 09:15 | NUR ---
arrived to unit from pacu oriented x4, lethargic, but answering appropriately, family at bedside, vitals stable, pain rating 7/10 to abdomen, minimal drainage to abdominal dressing, abdominal binder in place. rt contacted for incentive spirometer.
[2024-09-04] MEDS: LORATAdine 10 mg 10 MG TABLET PO PRN (09:39)
[2024-09-04] MEDS: acetaMINOPHEN WITH coDEINE 1 TAB TAB PO PRN (09:40)
[2024-09-04] MEDS: ibuPROFEN 600 MG TABLET PO PRN (11:31)
--- NOTE | 2024-09-04 12:18 | OP ---
DATE OF PROCEDURE: 09/04/2024 PREOPERATIVE DIAGNOSES: 1. Menorrhagia. 2. Submucosal fibroid. 3. Anemia of chronic blood loss. POSTOPERATIVE DIAGNOSIS: 1. Menorrhagia. 2. Submucosal fibroid. 3. Anemia of chronic blood loss. PROCEDURE: Total abdominal hysterectomy and bilateral salpingectomy. SURGEON: Monica Bernabe MD. GUEST ATTENDANT: Lesley Baldwin MD ANESTHESIA: General endotracheal. COMPLICATIONS: None. ESTIMATED BLOOD LOSS: 150 mL. FINDINGS: Uterus approximately 12-14 week size, normal tubes and ovaries. SPECIMENS: Uterus and bilateral fallopian tubes. DESCRIPTION OF PROCEDURE: The patient was taken to the operating room where general endotracheal anesthesia was induced without complication. She was prepped and draped in the usual sterile fashion in the dorsal supine position. Timeout was done. The skin was marked. A Pfannenstiel skin incision was made with a scalpel and carried through to underlying layers of fascia with the Bovie. The fascia was incised in the midline and the incision extended laterally. The midline was identified, the rectus muscles were and the peritoneum entered bluntly with the surgeon's finger and the abdominal incision extended superiorly and inferiorly with good visualization of the bladder. The O'Ketan-O'Purcell retractor was placed into the incision and the bowel packed away with moist laparotomy sponges. The abdominal and bladder blades were placed. The fundus of the uterus was grasped with a Arnaldo clamp. The round ligaments were identified bilaterally. These were doubly stitched and transected. The anterior and posterior leaves of the broad ligament were dissected to reveal the pubocervical fascia anteriorly. The uteroovarian ligament was then isolated, doubly clamped, transected. The pedicle was tied suture with free tie followed by suture ligature on each side. Hemostasis was assured. Further dissection was continued on the broad ligament for exposure of the uterine arteries. These were doubly clamped, transected, and suture ligated. Serial bites were then taken down through the cardinal ligaments to the level of the uterosacral ligaments. These pedicles were clamped, transected and suture ligated. The uterosacral pedicles were then doubly clamped and the specimen amputated. The uterosacral ligaments were tied in Carolann fashion and then the remainder of the vaginal cuff was closed in a series of interrupted [id number] stitches for closure of the vaginal cuff. Excellent hemostasis was noted. Attention was then turned to the fallopian tubes. Each was identified. Each was doubly clamped and amputated. The pedicle was tied with free tie, followed by suture ligature. Small bleeders in the serosa were clamped and ligated. The pelvis was then copiously irrigated with warm normal saline and excellent hemostasis noted throughout. The retractor and packings were then removed. The pelvis was again serially inspected. Hemostasis noted throughout. The peritoneum was then closed in a running fashion using 2-0 Vicryl. The fascia and rectus muscles were serially inspected. Hemostasis was obtained throughout with the Bovie. The fascia was then closed in a running fashion using 0 Vicryl. The subcutaneous tissue was copiously irrigated with warm normal saline and excellent hemostasis was obtained throughout with the Bovie. The subcutaneous fat was approximated with simple interrupted stitches of 2-0 Vicryl and the skin closed in subcuticular fashion using Insorb agueda. The patient tolerated the procedure well. All sponge, lap, needle and instrument counts were correct x2. She received 2 grams of Ancef beginning of procedure and her was notified of her operative course and stability. TID: [id number] RECEIPT: [id number]
--- NOTE | 2024-09-04 15:11 | NUR ---
nurse note contact Dr. Bernabe's office regarding pain management for patient. patient stated that ibuprofen helped to decrease her pain, tylenol with codeine "not doing anything", requesting additional pain medication or for ibuprofen frequency to be adjusted.
[2024-09-04] MEDS ORDERED: DiphenhydrAMINE HCL 25 MG CAPSULE PO PRN (16:30)
[2024-09-04] MEDS: CALDOLOR 800MG+NS 250ML 250 ML IV SCH (17:05)
[2024-09-04] MEDS: ondanSETRON 4MG INJ IVP SCH (17:06)
[2024-09-05] VITALS (13 sets, daily range): BP systolic 84–107; BP diastolic 44–68; PULSE 72–115; RESP 14–20; TEMP 97.2–100.1; O2SAT 100
[2024-09-05 06:37] LABS: HEMATOCRIT 22.8 % (36-48); MEAN CORPUSCULAR HGB CONC 30.3 g/dL (32.0-36.0); MEAN CORPUSCULAR VOLUME 79.4 fL (79-99); RED BLOOD CELL COUNT(AUTO) 2.87 MIL/uL (4.00-5.50); RED CELL DISTRIBUTION WIDTH 17.6 % (11.0-15.5); WHITE BLOOD COUNT (AUTO) 7.6 K/uL (4.8-10.8)
[2024-09-05 06:47] LABS: CREATININE 0.5 mg/dL (0.5-1.0); POTASSIUM 3.7 mmol/L (3.5-5.1)
--- NOTE | 2024-09-05 10:00 | NUR ---
DR. BAILEY AT BEDSIDE, DISCUSSED PLAN OF CARE WITH PATIENT; PT MADE AWARE PLAN FOR 2 PRBCS FOR TRANSFUSION INSTEAD OF 1 DUE TO LATEST VITAL SIGNS, CHO TO BE DISCONTINUED AFTER TRANSFUSIONS TO PREVENT FALLS DURING TRANSFUSION PER MD, RECHECK OF CBC TO BE DONE 2 HOURS AFTER BOTH TRANSFUSIONS HAVE FINISHED, PT VERBALIZED UNDERSTANDING AND AGREEMENT WITH PLAN.
[2024-09-05] MEDS: acetaMINOPHEN 500 MG TABLET PO SCH (10:48)
[2024-09-05] MEDS: SIMETHICONE 80 MG TAB.CHEW PO PRN (10:49)
[2024-09-05] MEDS: 0.9% NACL 500ML IV.SOLN 500 ML IV ONE (11:00)
--- NOTE | 2024-09-05 12:40 | NUR ---
BLOOD TRANSFUSION STARTED AT 1235H, VS CHECKED AT THIS TIME. ASKED PATIENT IF FEELING ANY ITCHINESS/SHORTNESS OF BREATH/PAIN, STATES "I'M NOT COMPLAINING OF ANYTHING." VS CHECKED AT 15 MIN MICHELLE 1250H, DENIES ANY DISCOMFORT. INSTRUCTED PATIENT TO CALL IF FEELING ANY DISCOMFORT/ITCHINESS/SHORTNESS OF BREATH. Addendum: 09/05/24 at 2058 by QUEENIE HERNANDEZ RN RN OFFERED PATIENT PRN COLACE DOSE REQUESTED EARLIER, STATES "I DON'T WANT IT ANYMORE." INSTRUCTED TO CALL IF WOULD LIKE TO TAKE LATER.
--- NOTE | 2024-09-05 13:45 | NUR ---
PATIENT APPEARS TO BE GROANING/RESTLESS IN PAIN. ASKED PATIENT IF FEELING ANY PAIN/DISCOMFORT, STATES "NO, I'M FINE." CONTINUES TO APPEAR TO BE GROANING/RESTLESS, ASKED PATIENT AGAIN IF HAVING ANY KIND OF DISCOMFORT, STATES "I'M FINE." INSTRUCTED TO CALL IF EXPERIENCING ANY PAIN/DISCOMFORT.
--- NOTE | 2024-09-05 14:30 | NUR ---
PATIENT C/O OF SEVERE PAIN TO ABDOMEN, VERBALIZED AGREEMENT WITH SCHEDULED MOTRIN, MADE AWARE PRN DEMEROL AVAILABLE IF IN CASE PAIN IS SEVERE PER MD ORDER. PT APPEARS TO BE MOANING/GROANING/RESTLESS IN PAIN, STATES WORST PAIN SHE HAS FELT SINCE ADMISSION, EMPHASIZED TO PATIENT ABOUT OTHER PRN PAIN MEDICATIONS ORDERED BY MD, STATES "I DON'T WANT TO TAKE ANYTHING MORE FOR PAIN OTHER THAN WHAT'S SCHEDULED," FURTHER STATES TYLENOL/CODEINE TAB "DOES NOT HELP." INSTRUCTED PATIENT TO CALL IF IN CASE DECISION IS CHANGED.
--- NOTE | 2024-09-05 14:37 | NUR ---
INITIAL ASSESSMENT Patient lives with spouse, Stephane Hudson. She has no home services or DME. Patient is able to complete ADLs independently and drives. Patient is employed at this hospital. PCP is Dr. Lenora Mcgarry. [facility] [place] Patient has no issues with having stable skilled nursing to live in or transportation. She and spouse have lived in their home for some time. No concerns voiced regarding not having enough food in the home. No safety concerns voiced regarding returning home. DCP is home. Addendum: 09/05/24 at 1439 by JENNIFER NIEVES Amended: Links added.
[2024-09-05] MEDS: ibuPROFEN 400 MG TABLET PO SCH (14:50)
[2024-09-05] MEDS ORDERED: MEPERIDINE-PF 75 MG/ML SYG IVP PRN (15:30)
[2024-09-05] MEDS ORDERED: MEPERIDINE-PF 25 MG/ML SYG IVP SCH (16:00)
[2024-09-05] MEDS: PROMETHAZINE HCL 25 MG/ML 1ML AMPULE IM PRN (16:07)
[2024-09-05] MEDS: MEPERIDINE-PF 100 MG/ML SYG IVP SCH (16:07)
--- NOTE | 2024-09-05 19:00 | NUR ---
PATIENT AND AT BEDSIDE ASKED REGARDING CHO REMOVAL, INFORMED PATIENT AND THAT PER ORDER OF DR. BAILEY, CHO TO BE DISCONTINUED AFTER RECEIVING BLOOD TRANSFUSIONS. PATIENT STATES "I DON'T UNDERSTAND, I'VE BEEN GETTING UP ALL DAY AND I'VE BEEN FINE." EMPHASIZED TO PATIENT IT WAS PRECAUTIONARY PER MD RECOMMENDATION AND ORDER, DISCUSSED WHEN MD HAD BEEN PRESENT AT BEDSIDE.
[2024-09-05] MEDS: doCUSate SODIUM 100 MG CAP PO PRN (20:06)
[2024-09-05 20:51] LABS: BASOPHILS # (AUTO) 0.05 K/uL (0.00-0.20); BASOPHILS % (AUTO) 0.5 % (0.0-5.0); EOSINOPHILS # (AUTO) 0.21 K/uL (0.00-0.70); EOSINOPHILS % (AUTO) 2.1 % (0.0-8.0); HEMATOCRIT 27.9 % (36-48); IMMATURE GRANULOCYTE ABSOLUTE 0.03 K/uL (0-1); LYMPHOCYTES # (AUTO) 1.6 K/uL (1.0-4.8); LYMPHOCYTES % (AUTO) 15.8 % (21.0-51.0); MEAN CORPUSCULAR HEMOGLOBIN 25.6 pg (27.0-33.0); MEAN CORPUSCULAR HGB CONC 31.9 g/dL (32.0-36.0); MEAN CORPUSCULAR VOLUME 80.4 fL (79-99); MONOCYTES # (AUTO) 0.9 K/uL (0.1-1.0); NEUTROPHILS # (AUTO) 7.3 K/uL (1.8-7.7); NEUTROPHILS % (AUTO) 72.3 % (40.0-77.0); PLATELET COUNT (AUTO) 201 K/uL (130-400); RED BLOOD CELL COUNT(AUTO) 3.47 MIL/uL (4.00-5.50); RED CELL DISTRIBUTION WIDTH 16.2 % (11.0-15.5); WHITE BLOOD COUNT (AUTO) 10.1 K/uL (4.8-10.8)
[2024-09-06] VITALS: BP 96/68; PULSE 82; RESP 20; TEMP 97.9
[2024-09-06 04:00] VITALS: BP 90/47; PULSE 75; RESP 20; TEMP 97.8
--- NOTE | 2024-09-06 06:50 | NUR ---
PATIENT HAS QUESTIONS ABOUT HER PAIN MEDICATION SCHEDULE. QUESTIONS ANSWERED. PATIENT ASKED IF SHE HAD ANY LABS FOR THIS MORNING BECAUSE SHE RECEIEVED BLOOD YESTERDAY. I LET PATIENT KNOW THAT DR BAILEY DID NOT ORDER ANY MORNING LABS. I DID LET PATIENT KNOW THAT HER HGB RECHECK WAS AN 8.9 AND THAT I WOULD FOLLOW UP WITH DR BAILEY
--- NOTE | 2024-09-06 06:58 | NUR ---
LET DR BAILEY KNOW THAT PATIENT WAS CONCERNED WITH HER HGB. HER HGB IS 8.9. NO ORDERED RECEIVED AT THIS TIME.
[2024-09-06 07:48] VITALS: BP 97/57; PULSE 83; RESP 20; TEMP 98
[2024-09-06 08:00] VITALS: O2SAT 96
[2024-09-06 09:05] VITALS: TEMP 98.1
--- NOTE | 2024-09-06 10:30 | NUR ---
Patient ready for discharge as per Dr. Bernabe. Discussed plan of care, home medication, physical restriction. Patient verbalized understanding. Discontinued IV access.
--- NOTE | 2024-09-06 11:25 | NUR ---
Patient was wheeled to lobby and left in private car with family members.
== END 2024-09-06 11:25 | disposition home or self-care (01) | DRG 743 ==
LOC: DAHIP 09-04 05:47 → 4BH 09-04 09:15
PROVIDERS: ADMIT Obstetrics & Gynecology; ATTEND Obstetrics & Gynecology
PROC: 0UT90ZZ Resection of Uterus, Open Approach (ICD-10-PCS; principal; 2024-09-04 07:00)
PROC: 0UB70ZZ Excision of Bilateral Fallopian Tubes, Open Approach (ICD-10-PCS; 2024-09-04 07:00)
PROC: 30233N1 Transfusion of Nonautologous Red Blood Cells into Peripheral Vein, Percutaneous Approach (ICD-10-PCS; 2024-09-05)
DX: D25.0 Submucous leiomyoma of uterus (principal); D50.0 Iron deficiency anemia secondary to blood loss (chronic); N92.0 Excessive and frequent menstruation with regular cycle; N89.5 Stricture and atresia of vagina
CPT/HCPCS: 36415; 80048; 84703; 85025; 85027; 86850; 86900; 86901; 86923; A4344; A4450; G0378; J1741; J2175; J2250; J2274; J2371; J2405; J2550; J2704; J2710; J3010; J3490; J7030; J7040; J7120; P9016; A4215; A4216; A4221; A4222; A4223; A4510; A4600; A4663; A6260; J0690